=== PATIENT | female | born 1945 | race Caucasian/White ===

== ENCOUNTER → 2017-01-27 | Outpatient (CLI) | payer MEDICARE | LOC: MHCPAIN 10:23 | DX: G89.29 Other chronic pain (principal); M47.817 Spondylosis without myelopathy or radiculopathy, lumbosacral region; M54.16 Radiculopathy, lumbar region; M53.3 Sacrococcygeal disorders, not elsewhere classified; M96.1 Postlaminectomy syndrome, not elsewhere classified | CPT/HCPCS: G0463 ==

== ENCOUNTER 2023-02-13 20:18 | Inpatient (IN) | payer MEDICARE, OTHER ==
[~2023-02-13] VITALS: Ht 165.1 cm; Wt 61.2 kg
[2023-02-13 20:34] LABS: BASO % 0.5 % (0.0-2.0); EOS # 0.1 K/mm3 (0.0-0.7); EOS % 1.6 % (0.0-4.0); GRAN # 4.7 K/mm3 (1.4-6.5); GRAN % 61.2 % (42.2-75.2); HEMATOCRIT 42.1 % (37.0-47.0); HEMOGLOBIN 13.7 g/dl (12.5-16.0); LYMPH # 2.3 K/mm3 (1.2-3.4); LYMPH % 30.6 % (20.0-51.0); MEAN CELL VOLUME 99 fl (80.0-100.0); MEAN CORPUSCULAR HEMOGLOBIN 32 pg (27-31); MEAN CORPUSCULAR HGB CONC 33 g/dl (33.0-37.0); MEAN PLATELET VOLUME 10.3 fl (7.4-10.4); MONO # 0.4 K/mm3 (0.1-0.6); MONO % 5.7 % (1.7-9.3); PLATELET COUNT 202 K/mm3 (130-400); RED BLOOD COUNT 4.25 M/mm3 (4.10-5.30); REDCELL DISTRIBUTION WIDTH-CV 13.3 % (11.5-14.5)
[2023-02-13 20:52] LABS: ALBUMIN 4.4 gm/dL (3.4-4.8); BILIRUBIN,TOTAL 0.4 mg/dL (0.2-1.2); CALCIUM 9.7 mg/dL (8.4-10.2); CREATININE, serum 1.11 mg/dL (0.57-1.11); POTASSIUM 3.2 mmol/L (3.5-4.5); TOTAL PROTEIN 7.7 gm/dL (6.2-8.1)
[2023-02-13] MEDS ORDERED: AMBIEN 5MG TABLE5 MG PO (21:38)
[2023-02-13] MEDS ORDERED: ZOCOR 20MG20 MG PO (21:42)
[2023-02-13] MEDS ORDERED: CYMBALTA 30MG30 MG PO (21:44)
[2023-02-13] MEDS ORDERED: NORCO 325 MG-51 TAB PO (21:48)
[2023-02-13] MEDS ORDERED: ZANAFLEX 4MG TAB4 MG PO (21:50)
[2023-02-13] MEDS ORDERED: NEURONTIN600 MG/TAB PO (21:51)
[2023-02-13] MEDS ORDERED: HCTZ 25MG TAB25 MG PO (21:53)
[2023-02-13] MEDS ORDERED: NORVASC 5MG5 MG/TAB PO (21:55)
[2023-02-13] MEDS ORDERED: ATARAX 25MG25 MG/TAB PO (21:57)
[2023-02-13 23:40] LABS: COLLECTION METHOD CATHETER
[2023-02-14] VITALS (15 sets, daily range): BP systolic 117–150; BP diastolic 50–99; PULSE 64–88; TEMP 97.4–99.4
[2023-02-14 00:05] LABS: PH 6.5 (5.0-8.5); URINE APPEARANCE Clear (CLEAR/HAZY); URINE BLOOD TRACE-INTACT (NEGATIVE); URINE COLOR Yellow (YELLOW); URINE GLUCOSE Negative (NEGATIVE); URINE KETONE Negative (NEGATIVE); URINE NITRATE Negative (NEGATIVE); URINE PROTEIN(semi-quant) Negative (NEGATIVE); URINE UROBILINOGEN 0.2 E.U/dL (0.2-1.0)
[2023-02-14 00:13] LABS: SQUAMOUS EPITHELIAL None Seen /hpf (0-10); URINE BACTERIA Rare /hpf (NONE SEEN); URINE RBC None Seen /hpf (0-2)
--- NOTE | 2023-02-14 00:27 | NUR ---
PT ADMITTED TO ROOM 343 FROM ER. PT IS IN SEVERE PAIN. NEW ORDER RECEIVED FROM [facility] FOR 1MG DILAUDID. GIVEN SLOWLY. O2 SAT FLUCUATING 88- 97% PLACED 02 OXYMASK AT 5L. RT NOTIFIED. PAIN CONTINUES. SEE MAR FOR DILAUDID/TORADOL/ KXYH1DR GIVEN. DAUGHTERS AT BEDSIDE. VERY SUPPORTIVE.
--- NOTE | 2023-02-14 01:43 | NUR ---
PT DOZING NOW. MORE COMFORTABLE. VSS. O2 5L PER OXYMASK. DAUGHTER LEFT FOR HOME. FAMILY WANTS TO BE CALLED SOON ORTHO DECIDES TIME FOR SURGERY. [place]. PT NPO AT MIDNIGHT. CALL LIGHT IN REACH. BED ALARM SET.
--- NOTE | 2023-02-14 03:30 | NUR ---
PT TAKES OFF OXYMASK AND O2 SAT DECREASE TO 69%-70%. RECOVERS TO 97% WITH OXYMASK IN PLACE. SCD PLACED ON LLE.
[2023-02-14 03:42] LABS: PARTIAL THROMBOPLASTIN TIME 27.4 SECONDS (26.0-37.0)
[2023-02-14 03:47] LABS: INR 1.1 (0.8-3.0); PROTHROMBIN TIME 12.4 SECONDS (9.7-12.8)
--- NOTE | 2023-02-14 06:19 | NUR ---
NOTIFIED DAUGHTER - PLANS FOR SURGERY AT 1000 THIS MORNING.
--- NOTE | 2023-02-14 06:25 | NUR ---
GAVE PT DILAUDID. PAIN LEVEL /10. O2 LEVEL 95-97%
--- NOTE | 2023-02-14 08:00 | NUR ---
PATIENT IS VERY DROWSY BUT AROUSES TO VERBAL STIMULI. DIVING JUDGE REPORTED C/O PAIN AND DOSE OF IV DILAUDID BEFORE SHIFT CHANGE. DIVING JUDGE ALSO REPORTED INCREASED O2 NEEDS OVER NIGHT DUE TO NARCOTIC ADMINISTRATION. AT SHIFT CHANGE, PATIENT WAS 100% ON 5L OXYMASK, PATIENT NOW IN UPPER 90'S ON 2-3L AND WILL CONTINUE TO WEAN DOWN PER VITALS. BUCKS TRACTION INPLACE TO RLE. NPO FOR PENDING SURGERY TODAY, NO ORDERS FOR CONSENT AT THIS TIME. IV FLUIDS INFUSING VIA PUMP. TOLBERT TO DILLON. HEAD TO TOE ASSESSMENT COMPLETE. PATIENT RESTING WITH CALL LIGHT IN REACH. BED ALARM ON. NO FAMILY AT BEDSIDE YET.
--- NOTE | 2023-02-14 09:50 | NUR ---
& ORTHO PA AT BEDSIDE VISITING WITH PATIENT & DAUGHTERS
[2023-02-14 10:15] LABS: CREATININE, serum 0.88 mg/dL (0.57-1.11); POTASSIUM 3.6 mmol/L (3.5-4.5)
--- NOTE | 2023-02-14 10:20 | NUR ---
PATIENT'S POTASSIUM RECHECK WAS 3.6, PATIENT CLEARED FOR SURGERY. PACU AT BEDSIDE OBTAINING CONSENT, IV FLUIDS TO GRAVITY, PATIENT GOING DOWN TO OR WITH DAUGHTER AT BEDSIDE.
--- NOTE | 2023-02-14 11:35 | NUR ---
SW presented to complete intake with patient and was informed that patient would be going to surgery. SW will present at a different time to complete intake. SW will continue to follow.
--- NOTE | 2023-02-14 13:00 | NUR ---
PATIENT BACK IN ROOM 343 POST OP. AROUSES TO VERBAL STIMULI BUT IS DROWSY. PACU GAVE IV DILAUDID BEFORE COMING TO THE FLOOR DUE TO INCREASED PAIN AND MOANING DURING REPORT, NO C/O PAIN AT THIS TIME. PATIENT BROUGHT TO FLOOR FROM PACU ON 10L OXYMASK WITH SATS AT 98%, PATIENT WEANED DOWN TO 3L PER MASK WITH SATS AT 98-99%. FAMILY AT BEDSIDE TALKING INTERMITTENTLY WITH PATIENT.
[2023-02-15] VITALS (11 sets, daily range): BP systolic 114–139; BP diastolic 52–64; PULSE 70–92; TEMP 97.4–98.9
--- NOTE | 2023-02-15 09:57 | NUR ---
PT RESTING IN BED WITH PAIN 08/01. PLANS TO PROVIDE PAIN MEDICATION WHEN AVAILABLE. PT ASSISTED WITH ADL'S. PT ASSISTED TO CHAIR BY THERAPY X1 ASSIST AND WALKER. DRESSING TO RIGHT HIP SCOOBY, DRY, AND INTACT. FAMILY AT BEDSIDE. WILL CONTINUE TO MONITOR.
--- NOTE | 2023-02-15 11:00 | NUR ---
SW met with patient, some family was present and daughter (Diya Schaefer [phone]) family was presented and permitted by patient to remain in room during intake process. Patient confirmed that she resides in the home with spouse in [place] and independent with ADL's and currently is not prescribed any DME's but has access to walker in her home. Patient confirmed that her PCP is Dr Luis and pharmacy of choice is [facility] location in [place]. Patient is excepting to discharge back to her home, pending any further medical recommendations at this time.
--- NOTE | 2023-02-15 12:01 | NUR ---
TOLBERT D/C PER ORDERS, NO COMPLAINTS AT THIS TIME
[2023-02-16] VITALS (14 sets, daily range): BP systolic 117–145; BP diastolic 56–67; PULSE 67–87; TEMP 97.8–99
--- NOTE | 2023-02-16 06:17 | NUR ---
PT weaned to RA per RT earlier this shift, replaced after O2 sats <90% on RA, on 2L NC. up to bsc with x2 assist using GB/walker, pain controlled with po pain meds. dsg to right hip cdi, ice pack on as siva. RW INT patent/secure.
[2023-02-16 11:03] LABS: HEMATOCRIT 22.2 % (37.0-47.0); HEMOGLOBIN 7.4 g/dl (12.5-16.0)
--- NOTE | 2023-02-16 16:36 | NUR ---
anode worker met with patient to discuss discharge planning. SW provided the Medicare.gov list of options for SNF in the [facility], which is where the patient lives. SW followed up with patient on her preferences for SNF. Patient would like referrals sent to [facility]. LATIA faxed referrals to [facility]. LATIA was notified [facility] is a smoke free facility. Patient understood and would follow those rules. LATIA discussed inpatient rehab with this patient. Patient would be interested in IPR but would like to speak with her first. LATIA mentioned this to the IPR director. LATIA was notified the IPR director met with patient and she still needed to speak with her about her options. LATIA will follow up. Discharge Plan: SNF or IPR
--- NOTE | 2023-02-16 22:19 | NUR ---
PT A&O X4. VSS ON 1L/NC. X2 ASSIST UP TO BSC, TEARFUL & RATING PAIN 8/10 WITH MOVEMENT, GIVEN PRN SEE APR. PT BACK IN BED & RATING PAIN 6/10 WHEN LAYING DOWN. X4 INCISIONS TO RIGHT HIP WITH GAUZE CDI & ICE PACK IN PLACE. RIGHT WRIST INT PATENT. SCDS & TEDS ON. FALL PRECAUTIONS IN PLACE & CALL LIGHT IN REACH. DENYING FURTHER NEEDS.
[2023-02-17] VITALS (11 sets, daily range): BP systolic 143–153; BP diastolic 60–72; PULSE 64–85; TEMP 97.5–98.3
--- NOTE | 2023-02-17 04:53 | NUR ---
PT HAS SLEPT THROUGHOUT SHIFT WITH NO FURTHER C/O PAIN. EVEN & UNLABORED RESP NOTED. REMAINS ON 1L/NC. SCDS & TEDS ON. ICE PACK TO RIGHT HIP. CALL LIGHT IN REACH.
--- NOTE | 2023-02-17 06:14 | NUR ---
X2 ASSIST UP TO BSC. PT VERY TEARFUL WHEN STANDING UP & STATES PAIN IS 7/10 WHEN SHE HAS TO MOVE, GIVEN PRN SEE MAR. PT BACK IN BED WITH CALL LIGHT IN REACH DENYING FURTHER NEEDS.
[2023-02-17 10:15] LABS: HEMATOCRIT 23.4 % (37.0-47.0); HEMOGLOBIN 7.9 g/dl (12.5-16.0)
[2023-02-17 10:35] LABS: CALCIUM 8.6 mg/dL (8.4-10.2); CREATININE, serum 0.81 mg/dL (0.57-1.11); POTASSIUM 3.6 mmol/L (3.5-4.5)
--- NOTE | 2023-02-17 11:56 | NUR ---
PT RETURNED FROM SWALLOW STUDY.
--- NOTE | 2023-02-17 17:05 | NUR ---
buffing line set up worker met with patient and family regarding options for IPR or SNF. Patient and family agreed IPR would be their preference. SW spoke with the IPR director, Ann, whom expressed they would have availability on Wednesday to accept. LATIA notified Dr. Martins of patient transfer on Wednesday to [facility]. Discharge Plan: IPR
--- NOTE | 2023-02-17 20:30 | NUR ---
PT IN BED, TAKES HS MEDS WITH HOB ELEVATED AND ONE PILL AT A TIME. ASSISTED TO BSC, DOES FAIR. PT REPORTS MUCH PAIN WITH ACTIVITY, WAS GIVEN NORCO 7.5MG PO WITH HS MEDS. HAS INT TO RT HAND, FLUSHES OK. VOIDS AND BACK TO BED. REDRESSED RT UPPER HIP INCISION WITH NEW 4X4 AND TEGADERM, NOTED BRUISING AT SITE. OTHER 2 INCISIONS D/I. PT READY FOR BED. BED ALARM ON.
[2023-02-18] VITALS (11 sets, daily range): BP systolic 130–173; BP diastolic 51–78; PULSE 77–91; TEMP 97.4–98.7
--- NOTE | 2023-02-18 03:30 | NUR ---
PT ASSISTED TO BSC, MUCH DIFFICULTY WITH PAIN WITH TRANSFERS. VOIDS AND BACK TO BED ASSISTED WITH 2 STAFF/GAITBELT/WALKER.
--- NOTE | 2023-02-18 03:41 | NUR ---
MEDICATED WITH NORCO 7.5MG, SCHEDULED ES TYLENOL AND ATARAX 25MG PO NOW FOR RT HIP PAIN AND MILD ANXIETY.
[2023-02-18 06:44] LABS: BASO % 0.5 % (0.0-2.0); EOS # 0.2 K/mm3 (0.0-0.7); EOS % 2.6 % (0.0-4.0); GRAN % 64.2 % (42.2-75.2); LYMPH # 1.5 K/mm3 (1.2-3.4); LYMPH % 23.7 % (20.0-51.0); MEAN CELL VOLUME 96 fl (80.0-100.0); MEAN CORPUSCULAR HGB CONC 33 g/dl (33.0-37.0); MEAN PLATELET VOLUME 11.5 fl (7.4-10.4); MONO # 0.5 K/mm3 (0.1-0.6); MONO % 8.8 % (1.7-9.3); PLATELET COUNT 180 K/mm3 (130-400); RED BLOOD COUNT 2.36 M/mm3 (4.10-5.30)
[2023-02-18 06:48] LABS: HEMATOCRIT 22.6 % (37.0-47.0); HEMOGLOBIN 7.5 g/dl (12.5-16.0); MEAN CORPUSCULAR HEMOGLOBIN 32 pg (27-31)
[2023-02-18 07:00] LABS: CALCIUM 8.7 mg/dL (8.4-10.2); CREATININE, serum 0.77 mg/dL (0.57-1.11)
--- NOTE | 2023-02-18 10:36 | NUR ---
PATIENT ALERT AND ORIENTED X4. VSS. PATIENT HERE FOR RIGHT HIP FRACTURE. INCISIONS X3 CDI WITH GAUZE/TEGADERM. IV TO RIGHT HAND, INT AND FLUSHES WELL. PATIENT UP TO CHAIR THIS AM. PATIENT REPORTS PAIN 8/10, REQUESTS PAIN MEDICATION. NO FURTHER NEEDS AT THIS TIME. CHAIR ALARM ON. CALL LIGHT IN REACH.
--- NOTE | 2023-02-18 17:00 | NUR ---
box storage worker notified patient that she would transfer to the [facility] floor tomorrow afternoon. Patient's family member, Jorge, P# [phone], contacted the delinquency prevention social worker regarding questions about paperwork for discharge to [facility] and information on DPOA-HC. SW expressed she would meet with the patient in the morning and could discuss if she would like to complete a DPOA-HC at that time. No further questions or concerns at this time. Discharge Plan: [facility]
--- NOTE | 2023-02-18 19:30 | NUR ---
Received change of shift report from day shift nurse. Patient up in chair, denies any needs or concerns. Call light in reach.
[2023-02-19] VITALS (7 sets, daily range): BP systolic 151–166; BP diastolic 60–81; PULSE 76–83; TEMP 97.8–98.3
[2023-02-19 06:21] LABS: BASO % 0.3 % (0.0-2.0); EOS # 0.2 K/mm3 (0.0-0.7); EOS % 3.4 % (0.0-4.0); GRAN # 3.8 K/mm3 (1.4-6.5); GRAN % 62.7 % (42.2-75.2); LYMPH # 1.5 K/mm3 (1.2-3.4); LYMPH % 24.5 % (20.0-51.0); MEAN CELL VOLUME 97 fl (80.0-100.0); MEAN CORPUSCULAR HGB CONC 32 g/dl (33.0-37.0); MONO # 0.5 K/mm3 (0.1-0.6); MONO % 8.8 % (1.7-9.3); PLATELET COUNT 237 K/mm3 (130-400); RED BLOOD COUNT 2.45 M/mm3 (4.10-5.30); REDCELL DISTRIBUTION WIDTH-CV 13.2 % (11.5-14.5)
[2023-02-19 06:22] LABS: HEMATOCRIT 23.8 % (37.0-47.0); HEMOGLOBIN 7.7 g/dl (12.5-16.0); MEAN CORPUSCULAR HEMOGLOBIN 31 pg (27-31)
[2023-02-19 06:43] LABS: CALCIUM 9.2 mg/dL (8.4-10.2); CREATININE, serum 0.76 mg/dL (0.57-1.11); POTASSIUM 3.7 mmol/L (3.5-4.5)
--- NOTE | 2023-02-19 06:49 | NUR ---
Change of shift report given to day shift nurseBriana.
--- NOTE | 2023-02-19 09:59 | NUR ---
PATIENT ALERT AND ORIENTED X4. VSS. PATIENT HERE FOR RIGHT HIP FRACTURE. INCISIONS X3 CDI WITH GAUZE/TEGADERM. PATIENT REPORTS PAIN 5/10, REQUESTS PAIN MEDICATION. IV TO RIGHT HAND, INT AND FLUSHES WELL. PATIENT EATING BREAKFAST, NO FURTHER COMPLAINTS. CALL LIGHT IN REACH. BED ALARM ON.
--- NOTE | 2023-02-19 11:05 | NUR ---
PATIENT DOWN FOR BARIUM SWALLOW
--- NOTE | 2023-02-19 11:20 | NUR ---
PATIENT BACK TO FLOOR FROM BARIUM SWALLOW. CEPHALOMETRIC TRACER REPORTS UNABLE TO PERFORM BARIUM SWALLOW DUE TO PATIENT'S INABILITY TO STAND FOR AT LEAST 10 MINUTES. PATIENT BACK TO FLOOR AND IN BED, CALL LIGHT IN REACH. BED ALARM ON.
[2023-02-19] MEDS ORDERED: ASPI325T6 PO (11:46)
[2023-02-19] MEDS ORDERED: FERROUS SU325 MG/TAB PO (11:46)
[2023-02-19] MEDS ORDERED: TYLENOL 500MG500 MG PO (11:47)
[2023-02-19] MEDS ORDERED: CALCIUM 600600 MG PO (11:48)
[2023-02-19] MEDS ORDERED: SENEXON-S 50-81 EACH PO (11:48)
[2023-02-19] MEDS ORDERED: DULCOLAX S10 MG/SUPP RC (11:48)
[2023-02-19] MEDS ORDERED: VITAMIN C500 MG PO (11:51)
[2023-02-19] MEDS ORDERED: MULTI VITAMINS1 TAB PO (11:51)
[2023-02-19] MEDS ORDERED: FOLIC ACID 11 MG/TA1 PO (11:51)
--- NOTE | 2023-02-19 11:52 | NUR ---
PATIENT AND BELONGINGS GATHERED. IV DC'D FROM RIGHT HAND.
--- NOTE | 2023-02-19 14:51 | NUR ---
maintenance worker swimming pool met with patient to review important message from Medicare. Patient expressed she understood but would like to sign later as she was in pain and would like pain medications. SW met with patient's nurse whom expressed patient had received medications earlier can not receive another dose at this time. SW met with patient and she expressed she had forgotten she had received medications. Patient reports she was groggy and would like to take a nap. SW met with patient later to finalize the important message. SW re-reviewed the form. Patient understood and signed the form. SW placed original in chart and provided copy to patient. SW discussed a DPOA-HC with patient but she reports still being a bit groggy. SW expressed at this time she would like to wait until she is feeling better to complete the DPOA-HC. Patient is moving to the IPR until and can complete one next week. Patient was in agreement that she would like to wait at this time. Discharge plan: IPR
== END 2023-02-19 11:53 | DRG 482 ==
LOC: COL.ER 20:18 → SURG 23:05
PROVIDERS: Family Medicine; Internal Medicine; Nurse Practitioner Primary Care; Orthopaedic Surgery; Physician Assistant; ADMIT Internal Medicine
PROC: 0QS606Z Reposition Right Upper Femur with Intramedullary Internal Fixation Device, Open Approach (ICD-10-PCS; principal; 2023-02-14 10:00)
DX: S72.141A Displaced intertrochanteric fracture of right femur, initial encounter for closed fracture (principal); F17.210 Nicotine dependence, cigarettes, uncomplicated; W01.0XXA Fall on same level from slipping, tripping and stumbling without subsequent striking against object, initial encounter; G89.29 Other chronic pain; I10 Essential (primary) hypertension; F41.9 Anxiety disorder, unspecified; D64.9 Anemia, unspecified; K59.00 Constipation, unspecified; E87.6 Hypokalemia; G47.00 Insomnia, unspecified; M54.50 Low back pain, unspecified; Z74.09 Other reduced mobility; R13.10 Dysphagia, unspecified; Z23 Encounter for immunization; Z88.5 Allergy status to narcotic agent; Y93.89 Activity, other specified; Y92.89 Other specified places as the place of occurrence of the external cause; Z98.51 Tubal ligation status; Z79.899 Other long term (current) drug therapy
CPT/HCPCS: A9284; C1713; J0665; J0690; J1100; J1170; J1885; J2270; J2405; J2704; J3010; J3475; J7120

== ENCOUNTER 2023-02-19 12:02 | Inpatient (IN) | payer MEDICARE, OTHER ==
[~2023-02-19] VITALS: Ht 165.1 cm; Wt 58.5 kg
[~2023-02-19 12:02] MED LIST: AMBIEN 5MG TABLE5 MG PO; ASPI325T6 PO; ATARAX 25MG25 MG/TAB PO; CALCIUM 600600 MG PO; CYMBALTA 30MG30 MG PO; DULCOLAX S10 MG/SUPP RC; FERROUS SU325 MG/TAB PO; FOLIC ACID 11 MG/TA1 PO; HCTZ 25MG TAB25 MG PO; MULTI VITAMINS1 TAB PO; NEURONTIN600 MG/TAB PO; NORCO 325 MG-51 TAB PO; NORVASC 5MG5 MG/TAB PO; SENEXON-S 50-81 EACH PO; TYLENOL 500MG500 MG PO; VITAMIN C500 MG PO; ZANAFLEX 4MG TAB4 MG PO; ZOCOR 20MG20 MG PO
[2023-02-19] MEDS ORDERED: Acetaminophen 325 MG TAB PO PRN (12:30)
[2023-02-19] MEDS ORDERED: Docusate Sodium 100 MG CAP PO PRN (12:30)
[2023-02-19] MEDS ORDERED: Polyethylene Glycol 3350 17 GM PDS PO PRN (12:30)
[2023-02-19] MEDS ORDERED: Naloxone 0.4 MG/ML VIAL IV PRN (12:30)
[2023-02-19] MEDS ORDERED: Sennosides/Docusate 8.6-50 MG TAB PO PRN (12:30)
[2023-02-19] MEDS ORDERED: HYDROcodone/Acetaminophen 7.5-325 MG TAB PO PRN (14:15)
[2023-02-19] MEDS ORDERED: Acetaminophen 500 MG TAB PO SCH (14:15)
--- NOTE | 2023-02-19 14:55 | NUR ---
Has lack of transportation kept you from medical appts, meetings, work, or from getting things needed for daily living? NO How often do you feel lonely or isolated from those around you? SOMETIMES Over the past 5 days, how much of the time has pain made it hard for you to sleep? OCCASIONALLY Over the past 5 days, how often have you limited your participation in therapy due to pain? OCCASIONALLY Over the past 5 days, how often have you limited your day-to-day activities because of pain? OCCASIONALLY Have you had 2 or more falls in the past year or any fall with an injury? YES Did you have major surgery during the 100 days prior to admission? YES
[2023-02-19 18:08] VITALS: BP 158/63; PULSE 85; TEMP 97.8
[2023-02-19] MEDS ORDERED: Gabapentin 300 MG CAP PO SCH (21:00)
[2023-02-19] MEDS ORDERED: Famotidine 20 MG TAB PO SCH (21:00)
[2023-02-19] MEDS ORDERED: Sennosides/Docusate 8.6-50 MG TAB PO SCH (21:00)
[2023-02-19] MEDS ORDERED: hydrOXYzine HCl 25 MG TAB PO PRN (21:00)
--- NOTE | 2023-02-19 21:20 | NUR ---
PT A&O X4 LAYING IN BED. STATES PAIN IS 7/10 IN RIGHT HIP & WORSENS WITH MOVEMENT, GIVEN PRN SEE MAR. X3 INCISIONS TO RIGHT HIP WITH GAUZE & TEGADERM CD&I. ICE TO RIGHT HIP & TEDS ON BLE. FALL PRECAUTIONS IN PLACE & CALL LIGHT IN REACH. DENYING FURTHER NEEDS AT THIS TIME.
--- NOTE | 2023-02-20 05:50 | NUR ---
PT UP TO RESTROOM SEVERAL TIMES THROUGHOUT THE NIGHT WITH X1 ASSIST TO W/C. CURRENTLY BACK IN BED. RATING PAIN IN RIGHT HIP 5/10, GIVEN TYLENOL & ICE PACK. CALL LIGHT IN REACH & DENYING FURTHER NEEDS.
[2023-02-20 06:06] VITALS: BP 166/78; PULSE 73; TEMP 97.6
[2023-02-20] MEDS ORDERED: amLODIPine 5 MG TAB PO SCH (09:00)
[2023-02-20] MEDS ORDERED: Folic Acid 1 MG TAB PO SCH (09:00)
[2023-02-20] MEDS ORDERED: DULoxetine 30 MG CAP PO SCH (09:00)
[2023-02-20] MEDS ORDERED: Ascorbic Acid 500 MG TAB PO SCH (09:00)
[2023-02-20] MEDS ORDERED: Ferrous Sulfate 325 MG TAB PO SCH (09:00)
[2023-02-20] MEDS ORDERED: Calcium Carbonate 500 MG TAB PO SCH (09:00)
--- NOTE | 2023-02-20 11:43 | NUR ---
Data: Pegger visit attempted. Assessment: Patient was asleep. Plan of Care: Chaplains will remain available as needed/desired while Patient is admitted to this hospital.
[2023-02-20] MEDS ORDERED: Multivitamin TAB PO SCH (12:00)
[2023-02-20 14:39] LABS: COLLECTION METHOD CATHETER
[2023-02-20 14:55] LABS: PH 7.5 (5.0-8.5); SQUAMOUS EPITHELIAL 0-2 /hpf (0-10); URINE APPEARANCE Clear (CLEAR/HAZY); URINE BLOOD Negative (NEGATIVE); URINE COLOR Yellow (YELLOW); URINE GLUCOSE Negative (NEGATIVE); URINE KETONE Negative (NEGATIVE); URINE NITRATE Negative (NEGATIVE); URINE PROTEIN(semi-quant) Negative (NEGATIVE)
[2023-02-20 17:09] VITALS: BP 162/78; PULSE 78; TEMP 97.6
--- NOTE | 2023-02-20 17:36 | NUR ---
RECIEVED REPORT FROM NIGHT RN
--- NOTE | 2023-02-20 18:07 | NUR ---
PT ALERT AND ORIENTED X3. C/O SEVERE PAIN TO WHERE SHE BEGUN TO CRY AND WINCE. I GAVE HER NORCO AND IT SEEMED TO HELP. HER AND FAMILY CAME TO SEE HER TODAY WHICH SEEMED TO LIFT HER SPIRITS. SHIFT ASSESSMENT COMPLETE,SEE DOCUMENTATION. VSS, MEDICATED PER EMAR. INCSION SITES X3 CDI. DENIES NEED FOR ANYTHING FURTHER. CALL LIGHT WITHIN REACH, BED ALARM SET.
[2023-02-20 18:32] VITALS: BP 160/88; PULSE 94
--- NOTE | 2023-02-20 19:13 | NUR ---
Patient hurting so bad, PS of 9-10, medicated with [place] and applied ice pack to right hip, HS given without any difficulty, dressing to right hip CDI, denies further needs, call light and personal items within reach, will continue to monitor.
--- NOTE | 2023-02-20 22:35 | NUR ---
Called Tatyana,the SKIDWAY WORKER and informed her that patient wanted to take ambien, received an order for melatonin 9mg HS PRN.
[2023-02-20] MEDS ORDERED: Melatonin 3 MG TAB PO PRN (22:45)
--- NOTE | 2023-02-21 04:35 | NUR ---
Patient up to the bathroom at this time, reports she did get some sleep, denies further needs, will monitor.
[2023-02-21 05:38] VITALS: BP 168/72; PULSE 74; TEMP 97.7
[2023-02-21 06:34] VITALS: BP 170/90
[2023-02-21] MEDS ORDERED: HYDROcodone/Acetaminophen 7.5-325 MG TAB PO PRN ×2 (07:45→09:09)
--- NOTE | 2023-02-21 08:21 | NUR ---
PT ALERT AND ORIENNTED X4. C/O OF SEVERE PAIN THIS MORNING UPON RECIEVING BEDSIDE REPORT. NIGHT RN CONTACTED HOSPITALIST FOR UNRELIEVED PAIN AND ELVATED BP. NO ANSWER, MESSAGE LEFT. I ALSO CONTACTED HOSPITALIST PA FOR SAME ISSUES NOTED ABOVE. REPEAT XRAY OF R HIP ORDERED AND SCHEDULED PAIN MEDS GIVEN WELL DAILY AM MEDS. SHIFT ASSESSMENT COMPLETE. WILL REASSESS PAIN IN AN HOUR WELL BP, PT SITTING UP IN BED EATING BREAKFAST. CALL LIGHT WITHIN REACH BED ALARM SET.
--- NOTE | 2023-02-21 10:42 | NUR ---
Store Receiver met with patient to complete initial intake as she is new to the rehab unit. Patient lives in [place], [place] with her , Reginald and stated she has a lot of family support. Patient stated she and Reginald have been 27 years and have 7 children between them. Patient reported she also has [address] Luis for primary care and normally drives herself to appointments. Patient obtains medications from [facility] with no difficulties. Patient has a walking cane she uses to walk along the varela for extra support, but does not normally need any DME. Patient stated she is normally very independent.
[2023-02-21] MEDS ORDERED: hydroCHLOROthiazide 12.5 MG CAP PO SCH (11:55)
[2023-02-21] MEDS ORDERED: Acetaminophen 325 MG TAB PO SCH (14:15)
[2023-02-21 17:19] VITALS: BP 159/75; PULSE 77; TEMP 97.5
--- NOTE | 2023-02-21 22:25 | NUR ---
PT LAYING IN BED, ALERT AND ORIENTEDX4. RATES PAIN 8/10 IN THE RIGHT HIP. GAVE NORCO FOR PAIN. PT HAS NOT HAD MUCH RELIEF FROM NORCO. GOT PT UP TO BATHROOM USING WALKER AND GAIT BELT. ASSESSED. CALL LIGHT WITHIN REACH.
[2023-02-22 05:56] VITALS: BP 151/67; PULSE 83; TEMP 98.3
--- NOTE | 2023-02-22 10:27 | NUR ---
PT ALERT AND ORIENTED X4. SAYS SHE DIDNT SLEEP WELL OVERNIGHT R/T UNRELIEVED PAIN. BROUGHT IN [place] WITH SCHEDULED MORNING MEDS, PAIN RATED 5/10. SHIFT ASSESSMENT COMPLETE,SEE DOCUMENTATION. AMBULATES WITH ONE PERSON FWW AND GAIT BELT. APPETITIE OK WHEN PAIN RELIEVED. NO FURTHER CONCERNS, CALL LIGHT WITHIN REACH, BED ALARM SET.
[2023-02-22 16:58] VITALS: BP 170/72; PULSE 69; TEMP 98
--- NOTE | 2023-02-22 19:06 | NUR ---
report received from duane schmitt. pt just got into bed after family left. pt states her pain is ok for now. ice to right hip. bed alarm on. call light in reach. all needs met at this time.
--- NOTE | 2023-02-22 20:44 | NUR ---
shift assessment complete, see documentation. pt reporting 8/10 rle pain. prn norco administered per orders for pain. pt tolerated hs meds well. pt resting in bed and reading a book. bed alarm on. call light in reach. all needs met at this time.
--- NOTE | 2023-02-23 02:47 | NUR ---
pt ambulating to bathroom without difficulty. pt denies pain at this time but is concerned about how often she is urinating. informed her we could discuss with the doctor. bed alarm on. call light in reach. all needs met at this time.
[2023-02-23 05:45] VITALS: BP 159/73; PULSE 81; TEMP 98
[2023-02-23 07:24] LABS: BASO % 0.5 % (0.0-2.0); EOS # 0.3 K/mm3 (0.0-0.7); EOS % 4.5 % (0.0-4.0); GRAN # 3.4 K/mm3 (1.4-6.5); GRAN % 59.1 % (42.2-75.2); LYMPH # 1.5 K/mm3 (1.2-3.4); LYMPH % 26.2 % (20.0-51.0); MEAN CELL VOLUME 99 fl (80.0-100.0); MEAN CORPUSCULAR HGB CONC 33 g/dl (33.0-37.0); MEAN PLATELET VOLUME 9.7 fl (7.4-10.4); MONO # 0.5 K/mm3 (0.1-0.6); PLATELET COUNT 426 K/mm3 (130-400); RED BLOOD COUNT 2.74 M/mm3 (4.10-5.30); REDCELL DISTRIBUTION WIDTH-CV 13.6 % (11.5-14.5)
[2023-02-23 07:27] LABS: HEMOGLOBIN 8.8 g/dl (12.5-16.0); MEAN CORPUSCULAR HEMOGLOBIN 32 pg (27-31)
[2023-02-23 07:45] LABS: CALCIUM 9.7 mg/dL (8.4-10.2); CREATININE, serum 0.83 mg/dL (0.57-1.11); MAGNESIUM 1.9 mg/dL (1.6-2.6); POTASSIUM 3.6 mmol/L (3.5-4.5)
--- NOTE | 2023-02-23 08:15 | NUR ---
PT LAYING IN BED, ALERT AND ORIENTED. PT RATES PAIN 9/10 IN THE RIGHT HIP AND SAYS LEG MUSCLES HURT. PT IS CRYING. WEAKNESS IN THE RIGHT LEG. DRESSINGS ON RIGHT HIP ARE CLEAN, DRY, INTACT. GAVE PT NORCO FOR PAIN. ASSESSED AND GAVE MORNIGN MEDS. CALL LIGHT WITHIN REACH.
[2023-02-23] MEDS ORDERED: HYDROcodone/Acetaminophen 10-325 MG TAB PO PRN (08:30)
[2023-02-23] MEDS ORDERED: Methocarbamol 750 MG TAB PO SCH (09:00)
--- NOTE | 2023-02-23 16:12 | NUR ---
size worker met with pt and scheduled a family meeting 02/24/23 at 10:30am. Pt was agreeable to this. She will discuss with her family members and she has many whom want to come or be called. SW spoke with her daughter, Diya on her personal phone and explained it further.
[2023-02-23] MEDS ORDERED: Polyethylene Glycol 3350 17 GM PDS PO SCH (17:00)
[2023-02-23 18:17] VITALS: BP 154/72; PULSE 73; TEMP 97.8
--- NOTE | 2023-02-23 19:38 | NUR ---
Received change of shift report from day shift nurse. Patient resting in bed, exit alarm international flight attendant light in reach.
--- NOTE | 2023-02-23 21:51 | NUR ---
Patient requesting Ambien, sleeping pill. Reports she has been taking Ambien for several years "I just can't sleep". Called oncall hosp provider regarding patient's request for Ambien, telephone order given for Zolpidem, see [facility] for D.O. for med.
[2023-02-23] MEDS ORDERED: Zolpidem 5 MG TAB PO PRN (22:00)
[2023-02-24 05:05] VITALS: BP 150/78; PULSE 80; TEMP 98
--- NOTE | 2023-02-24 07:06 | NUR ---
Change of shift report given to day shift nurseBatsheva.
--- NOTE | 2023-02-24 07:13 | NUR ---
Shift report received from night RN. No events reported overnight. Pt sleeping supine in bed w/ even & unlabored resps. Call light in reach. Bed alarm on.
--- NOTE | 2023-02-24 07:54 | NUR ---
Pt assisted w/ uppper body dressing by AUTOMOBILE RELOCATION ENGINEER. Pt reporting pain level of 8/10 to left side head/face & body. [place] given per PRN order. Pt denies chest pain, visual changes, shortness of breath, nausea. Pt sitting up in bed to eat breakfast independently. Other needs denied. Call light in her reach. Bed alarm on.
--- NOTE | 2023-02-24 08:29 | NUR ---
Pt ambulating off unit w/ PT.
--- NOTE | 2023-02-24 09:33 | NUR ---
Pt reporting constipation & requesting Miralax. Pt thinks she has been unable to have a BM x 1 wk. Miralax scheduled for 1700. Okay to give dose early per Dr. Escobedo. Will continue to monitor.
--- NOTE | 2023-02-24 12:27 | NUR ---
Pt sitting up in recliner eating lunch independently. Pt reporting R hip pain at 10. [place] given per PRN order. Other needs denied. Call light in reach. Chair alarm on.
--- NOTE | 2023-02-24 13:57 | NUR ---
Pt ambulating off unit w/ OT.
--- NOTE | 2023-02-24 15:26 | NUR ---
Admission QIM scores were reviewed by the team. Code of 88 chosen for oral hygiene was determined by team discussion to be the most usual performance before interventions for this patient during the assessment period. Code of 3 chosen for toileting hygiene was determined by team discussion to be the most usual performance for this patient during the discharge assessment period. Code of 3 chosen for toilet transfers was determined by team discussion to be the most usual performance for this patient during the discharge assessment period.--Ann Sunshine, PD
--- NOTE | 2023-02-24 16:27 | NUR ---
Pt resting supine in bed watching tv. She reports RLE pain 08/31. Ice pack on. [place] given per PRN order. Other needs denied. Call light in reach. Bed alarm on.
--- NOTE | 2023-02-24 16:38 | NUR ---
galley worker attend a team meeting regarding patient. It was determined she can discharge 03/03/23 with Home Health services. She has a FWW at home. SW attended the family meeting with patient and relayed information about discharge and services. She was excited for this and had supportive family members. LATIA provided the Medicare.gov list to review and will follow up. LATIA confirmed pt has a walker. Daughter, Jorge reports she is able to obtain other equpiment as well through a connection. Discharge Plan: Home 03/03 with HH tbd?
--- NOTE | 2023-02-24 17:40 | NUR ---
Pt up to ambulate to the bathroom. She reports increased pain w/ weight bearing. 1/2 tab [place] given per PRN order. Dulcolax suppository given at pt's request.
[2023-02-24 17:53] VITALS: BP 174/75; PULSE 93; TEMP 97.7
--- NOTE | 2023-02-24 19:22 | NUR ---
Received change of shift report from day shift nurse.
--- NOTE | 2023-02-25 00:13 | NUR ---
Patient resting in bed with eyes closed, breathing nonlabored and even. Did not wake during nursing rounds. Exit alarm on, call light in reach.
[2023-02-25 05:17] VITALS: BP 167/78; PULSE 79; TEMP 97.8
--- NOTE | 2023-02-25 07:12 | NUR ---
Change of shift report given to day shift nursePadma.
--- NOTE | 2023-02-25 09:27 | NUR ---
PT LAYING IN BED, ALERT AND ORIENTEDX4. RATES PAIN 8/10 IN THE RIGHT HIP. GOT PT UP TO BATHROOM AND DRESSED. PT AMBULATED WELL WITH WALKER. PT INSISION SITES ARE CLEAN, DRY, INTACT. NO DRESSING ON TOP SITE. BRUISING AROUND HIP SITES. ASSESSED. GAVE MORNING MEDS AND PAIN PILL. CALL LIGHT WITHIN REACH.
--- NOTE | 2023-02-25 14:25 | NUR ---
typing office worker provided pt with team conference notes and briefly went over them. Pt verbalized understanding. SW previously provided Medicare.gov list and asked if pt reviewed it. Pt reports she has used HH in the past and would like to use them again. Pt could not recall who it was and will follow up with her daughter's to see if they recall the name. Discharge Plan: Home 03/03 with HH tbd?
[2023-02-25 18:11] VITALS: BP 152/73; PULSE 77; TEMP 97.7
[2023-02-25 18:30] VITALS: BP_SYST 152
--- NOTE | 2023-02-25 20:45 | NUR ---
PT RESTING IN BED. A&O. PAIN NOW LEVEL 2/10. ASSISTED PT TO BR WITH WALKER. PT ABLE TO SIT TO SIDE OF BED PER SELF. CGA WITH WALKER. PT ABLE TO MANAGE TOILETING TASKS. BACK TO BED. PT ABLE TO LIFT LEGS INTO BED PER SELF. PILLOW UNDER RLE. CALL LIGHT IN REACH. BED ALARM SET.
[2023-02-26 05:49] VITALS: BP 186/68; BP_SYST 168; PULSE 79; TEMP 97.9
[2023-02-26 07:03] VITALS: BP_SYST 186
[2023-02-26 07:34] VITALS: BP 159/61
--- NOTE | 2023-02-26 07:56 | NUR ---
PT ALERT AND ORIENTED X4. PAIN RATED 2/10 THIS MORNING. BP ELEVATED OVERNIGHT 186/68. UPON RECHECK WAS FOUND TO BE 159/61, MEDICATED PER EMAR. ASSESSMENT COMPLETE. INCISION SITES X3 ON LATERAL RIGH THIP CLEAN,DRY, AND INTACT. NO SWELLING OR REDNESS NOTED. WILL CONTINUE TO MONITOR PAIN. EVEN UNLABORED RESPR. DENIES NEED FOR ANYTHING FURTHER. CALL LIGHT WITHIN REACH, BED ALARM SET.
[2023-02-26 17:50] VITALS: BP 153/77; PULSE 81; TEMP 98.1
[2023-02-27 05:52] VITALS: BP 131/66; PULSE 79; TEMP 97.9
--- NOTE | 2023-02-27 05:52 | NUR ---
PT GIVEN NORCO FOR LEVEL6/10 PAIN. RT HIP. VVS. ASSISTED TO BR W/WALKER. VOIDED. BACK TO BED. CALL LIGHT IN REACH.
[2023-02-27 06:58] VITALS: BP_SYST 131
--- NOTE | 2023-02-27 06:59 | NUR ---
Shift report received from night RN. No events reported overnight. Pt awake & sitting up in bed watching tv. R hip dressings x 3 are CDI. Pain/discomfort denied. Call light in reach. Bed alarm on.
--- NOTE | 2023-02-27 08:43 | NUR ---
Pt resting supine in bed w/ HOB elevated to approx 30 degrees. Pt ate approx 30% of breakfast independently. She reports not feeling very hungry this morning. Pain/discomfort denied. Other needs denied. Call light in reach. Bed alarm on.
--- NOTE | 2023-02-27 09:42 | NUR ---
Pt supervised as she stood from bed to ambulate to the bathroom w/ FWW. Pt to sink after toileting for hygiene. Assistance provided for upper/lower body dressing. R hip dressings CDI. [place] dressing peeling off - gauze & tegaderm reapplied. Pt ambulated w/ RN off unit for Group Therapy.
--- NOTE | 2023-02-27 11:16 | NUR ---
Pt sitting up in recliner w/ BLE elevated on footrest after Group Therapy. Pt reporting R hip pain level of 7. [place] given at pt's request per PRN order. Other needs denied. Call light in reach. Chair alarm on.
--- NOTE | 2023-02-27 12:42 | NUR ---
Pt up to toilet. Unable to have a BM x 3 days. Pt would like to try another suppository this evening after her son & grandkids visit. Pt sitting up in recliner w/ BLE elevated on footrest for lunch. Call light in her reach. Chair alarm is on.
--- NOTE | 2023-02-27 15:49 | NUR ---
Pt sleeping supine in bed. Aroused easily from sleep. Pain denied. Other needs denied. Call light in reach. Fall precautions in place.
[2023-02-27 16:34] VITALS: BP 148/70; PULSE 74; TEMP 98.1
--- NOTE | 2023-02-27 17:49 | NUR ---
Pt up to ambulate to the bathroom w/ FWW. Pt reporting R hip pain level 7. [place] given per PRN order. Pt back in bed after toileting w/ RLE elevated on pillow. Ice pack declined. Other needs denied. Call light in reach. Fall precautions in place.
[2023-02-27 18:30] VITALS: BP_SYST 148
--- NOTE | 2023-02-27 20:00 | NUR ---
UPON SHIFT ASSESSMENT, PAT WAS UP IN BED ON THE PHONE WITH GRANDCHILDREN. RT HIP SURGICAL SITE DRESSING -CDI. SLIGHT EDEMA NOTED FROM HIP TO KNEE-NON PITTING. DISTAL PULSES PALPABLE. CURRENTLY, PAT DENIES ANY PAIN OR NEEDS AT THIS TIME. VS ARE WNL. CALL LIGHT WITHIN REACH, BED ALARM ON
--- NOTE | 2023-02-27 23:10 | NUR ---
PATIENT UP TO BATHROOM, STILL NO BOWEL MOVEMENT. RT HIP SURGICAL DRESSINGS CDI-HOWEVER, TEGADERM ROLLING UP. NEW, LARGER TEGADERM PLACED AGAIN (DAYSHIFT REPLACED WELL).
[2023-02-28 05:05] VITALS: BP 156/76; PULSE 80; TEMP 98.7
--- NOTE | 2023-02-28 05:53 | NUR ---
PATIENT SLEPT THROUGHOUT THE NIGHT. CURRENT VS ARE WNL. RT HIP AND KNEE STILL EXHIBIT NON PITTING EDEMA. PATIENT C/O OF NO PAIN OR NEEDS AT THIS TIME.
[2023-02-28 07:02] VITALS: BP_SYST 156
--- NOTE | 2023-02-28 07:02 | NUR ---
Shift report received from night RN. No events reported overnight. Pt sleeping supine in bed w/ even & unlabored resps. Call light in reach. Fall precautions in place.
--- NOTE | 2023-02-28 08:59 | NUR ---
Pt up to ambulate to the bathroom using her FWW. R hip dressings x 3 are CDI. Pt denies the need for pain medication at this time. Denies other needs. Pt sitting up in bed eating breakfast after toileting. Call light in reach. Fall precautions in place.
--- NOTE | 2023-02-28 11:29 | NUR ---
Suppository given at pt's request for lack of BM x 3-4 days. Abd remains soft w/ active BS in all 4 quads. Pt denies abd. pain or nausea.
[2023-02-28 17:03] VITALS: BP 149/56; PULSE 88; TEMP 98.4
--- NOTE | 2023-02-28 17:19 | NUR ---
Pt sitting up in recliner eating dinner. Pt reporting R hip pain at level 5 & requesting pain medication. [place] given per PRN order. Other needs denied. Call light in reach. Chair alarm on.
[2023-02-28 19:00] VITALS: BP_SYST 149
--- NOTE | 2023-02-28 21:00 | NUR ---
PT SITTING IN RECLINER WATCHING TV. NO NEEDED AT THIS TIME. CALL LIGHT IN REACH. CHAIR ALARM SET.
[2023-03-01 05:14] VITALS: BP 156/79; PULSE 93; TEMP 97.6
[2023-03-01 07:00] VITALS: BP_SYST 156
--- NOTE | 2023-03-01 07:00 | NUR ---
PT RESTING IN BED WATCHING TV. PT IS ON RA. PT IS AXOX3. PT HAVING PAIN TO HIP. PAIN MEDICATION GIVEN RECENTLY BY NIGHT RN. PT HAS CALL LIGHT AND INSTRUCTED TO CALL WITH ALL NEEDS.
--- NOTE | 2023-03-01 14:01 | NUR ---
LATIA followed up with pt on HH option. She reports she forgot to ask her daughter if they recall the name of a previous agency. Pt advised SW can call her dtr, Diya to discuss. Pt says her daughter would know what she would want. SW called Diya and inquired if she was aware of the HH used. She could not recall. SW provided the Medicare.gov site and steps to review HH in her area. Diya said she will review and get back to LATIA. Discharge Plan: Home 03/03 with HH tbd
[2023-03-01 18:31] VITALS: BP 186/76; PULSE 84; TEMP 97
[2023-03-01 19:00] VITALS: BP_SYST 186
--- NOTE | 2023-03-01 20:28 | NUR ---
Received change of shift report from day shift nurse. Patient resting in bed during report with exit alarm on, call light in reach.
[2023-03-01 22:06] VITALS: BP 172/66
--- NOTE | 2023-03-01 23:04 | NUR ---
Request and given sleeping pills at , see MAR. Exit alarm on while resting in bed, call light in reach.
[2023-03-02 04:46] VITALS: BP 178/80; PULSE 89; TEMP 98
[2023-03-02 06:00] VITALS: BP 146/77
[2023-03-02 07:00] VITALS: BP_SYST 146
--- NOTE | 2023-03-02 07:59 | NUR ---
Change of shift report given to day shift nurseHolley.
--- NOTE | 2023-03-02 08:46 | NUR ---
PT ALERT AND ORIENTED, VSS. PAIN RATED 5/10 IN LOWER BACK. ATE BREAKFAST INDEPENDANTLY AND IS GETTING READY TO WORK WITH OT. IS ANTICIPATING GOING HOME TOMORROW. SHIFT ASSESSMENT COMPLETE, MEDICATED PER EMAR. DENIES FURTHER NEEDS AT THIS TIME. CALL LIGHT WITHIN REACH.
[2023-03-02 15:11] LABS: BASO % 0.5 % (0.0-2.0); EOS # 0.2 K/mm3 (0.0-0.7); EOS % 1.8 % (0.0-4.0); GRAN % 70.4 % (42.2-75.2); LYMPH # 1.9 K/mm3 (1.2-3.4); LYMPH % 22.2 % (20.0-51.0); MEAN CELL VOLUME 99 fl (80.0-100.0); MEAN CORPUSCULAR HGB CONC 33 g/dl (33.0-37.0); MEAN PLATELET VOLUME 9.9 fl (7.4-10.4); MONO # 0.4 K/mm3 (0.1-0.6); MONO % 4.6 % (1.7-9.3); PLATELET COUNT 407 K/mm3 (130-400); RED BLOOD COUNT 2.95 M/mm3 (4.10-5.30); REDCELL DISTRIBUTION WIDTH-CV 13.7 % (11.5-14.5)
[2023-03-02 15:13] LABS: HEMATOCRIT 29.3 % (37.0-47.0); HEMOGLOBIN 9.6 g/dl (12.5-16.0); MEAN CORPUSCULAR HEMOGLOBIN 33 pg (27-31)
[2023-03-02 15:27] LABS: CALCIUM 9.6 mg/dL (8.4-10.2); CREATININE, serum 0.85 mg/dL (0.57-1.11); POTASSIUM 3.5 mmol/L (3.5-4.5)
[2023-03-02 15:58] LABS: COLLECTION METHOD CLEAN CATCH
[2023-03-02 16:13] LABS: SQUAMOUS EPITHELIAL 0-2 /hpf (0-10); URINE APPEARANCE Clear (CLEAR/HAZY); URINE BACTERIA None Seen /hpf (NONE SEEN); URINE BLOOD Negative (NEGATIVE); URINE COLOR Yellow (YELLOW); URINE GLUCOSE Negative (NEGATIVE); URINE KETONE Negative (NEGATIVE); URINE NITRATE Negative (NEGATIVE); URINE PROTEIN(semi-quant) Negative (NEGATIVE); URINE RBC 0-2 /hpf (0-2); URINE UROBILINOGEN 0.2 E.U/dL (0.2-1.0)
--- NOTE | 2023-03-02 17:05 | NUR ---
Will lack of transportation kept you from medical appts, meetings, work, or from getting things needed for daily living? no How often do you feel lonely or isolated from those around you? rarely Over the past 5 days, how much of the time has pain made it hard for you to sleep? occasionally Over the past 5 days, how often have you limited your participation in therapy due to pain? rarely/not at all Over the past 5 days, how often have you limited your day-to-day activities because of pain? rarely/not at all
[2023-03-02 18:02] VITALS: BP 147/73; PULSE 75; TEMP 97.8
[2023-03-02 19:08] VITALS: BP_SYST 147
--- NOTE | 2023-03-02 19:08 | NUR ---
RECEIVED CHANGE OF SHIFT REPORT FROM DAY SHIFT NURSE. EXIT ALARMS ON WHEN UP IN CHAIR OR IN BED WITH CALL LIGHT IN REACH.
--- NOTE | 2023-03-03 00:33 | NUR ---
PATIENT ATTEMPTED TO GET UP OUT OF BED PER SELF, DID NOT USE CALL LIGHT, SET OFF BED EXIT ALARM, PATIENT MUMBLING "I DIDN'T THINK I DRANK THAT MUCH". OBSERVED PATIENT GROANING WITH MOVEMENT AND WALKING REPORTING PAIN WITH MOVEMENT. OBSERVED R HIP DRESSING PARTIALLY OFF HIP INCISION AREA, DRESSING REPLACED WITH NEW GAUZE AND TEGADERM, AFTER PAIN MED GIVEN TO PATIENT, SEE MAR FOR MED GIVEN. NO OTHER NEEDS REPORTED AFTER PATIENT BACK IN BED, EXIT ALARM ON AND CONFIRMED THAT CALL LIGHT WAS IN REACH OF PATIENT.
[2023-03-03 05:23] VITALS: BP 151/70; PULSE 85; TEMP 97.7
--- NOTE | 2023-03-03 07:23 | NUR ---
CHANGE OF SHIFT REPORT GIVEN TO DAY SHIFT NURSEROSANNE. PATIENT RESTING IN BED DURING REPORT WITH EXIT ALARM ON AND CALL LIGHT IN REACH. PATIENT ANTICIPATE DISCHARGE FROM UNIT LATER TODAY.
[2023-03-03 07:26] VITALS: BP_SYST 151
--- NOTE | 2023-03-03 08:00 | NUR ---
PT ALERT AND ORIENTED, VSS. SHIFT ASSESMENT COMPLETE, PAIN RATED 5/10. NOT DUE AT THIS TIME. DAUGHTER WILL BE HERE AROUND 11 TO PICK HER UP . PT USES FWW AND GAIT BELT TO AMBULATE. INCISION SITES TO RIGHT HIP CDI, COVERED BY TEGADERM AND 4X4. DNEIES NEED FOR ANYHTING FURTHER AT THIS TIME. CALL LIGHT WITHIN REACH BED ALARM SET.
[2023-03-03] MEDS ORDERED: ROBAXIN 75750 MG/TAB PO (08:04)
[2023-03-03] MEDS ORDERED: FERROUS SU325 MG/TAB PO (08:04)
[2023-03-03] MEDS ORDERED: NORVASC 10MG10 MG PO (08:06)
[2023-03-03] MEDS ORDERED: ASPI325T6 PO (08:06)
[2023-03-03] MEDS ORDERED: TYLENOL 500MG500 MG PO (08:08)
[2023-03-03] MEDS ORDERED: CALCIUM 600600 MG PO (08:08)
[2023-03-03] MEDS ORDERED: SENEXON-S 50-81 EACH PO (08:09)
[2023-03-03] MEDS ORDERED: HCTZ12.5TAB PO (08:09)
[2023-03-03] MEDS ORDERED: MULTI VITAMINS1 TAB PO (08:09)
[2023-03-03] MEDS ORDERED: FOLIC ACID 11 MG/TA1 PO (08:09)
[2023-03-03] MEDS ORDERED: PEPCID 20MG TAB20 MG PO (08:09)
[2023-03-03] MEDS ORDERED: VITAMIN C500 MG PO (08:09)
[2023-03-03] MEDS ORDERED: amLODIPine 10 MG TAB PO SCH (09:00)
--- NOTE | 2023-03-03 11:32 | NUR ---
church worker attended team meeting regarding pt. She is determined to discharge today with [facility]. SW informed the team of the referral sent out and waiting to hear back. Pt has no equipment needs. SW faxed HH referral to [facility]. SW has not heard back on confirmation. SW faxed discharge orders, too. Pt and SW went over IM from Medicare. Pt signed and provided copy. Original in chart. SW called Diya aldana to obtain which HH agency they wanted. She chose [facility] and they believe to have used them in the past. Discharge Plan: Home today with [facility]
--- NOTE | 2023-03-03 11:46 | NUR ---
ALL DISCHARGE INSTRUCTIONS EXPLAINED AND QUESTIONS ANSWERED. PT WALKED OFF UNIT WITH STAFF TO PRIVATE VEHICLE.
--- NOTE | 2023-03-04 13:44 | NUR ---
Discharge QIM scores were reviewed by the team. Code of 6 chosen for eating was determined by team discussion to be the most usual performance for this patient during the discharge assessment period. Code of 6 chosen for oral hygiene was determined by team discussion to be the most usual performance for this patient during the discharge assessment period. Code of 6 chosen for toileting hygiene was determined by team discussion to be the most usual performance for this patient during the discharge assessment period. Code of 6 chosen for toilet transfers was determined by team discussion to be the most usual performance for this patient during the discharge assessment period. Code of 6 chosen for upper body dressing was determined by team discussion to be the most usual performance for this patient during the discharge assessment period. Code of 6 chosen for lower body dressing was determined by team discussion to be the most usual performance for this patient during the discharge assessment period. Code of 6 chosen for sit to lying was determined by team discussion to be the most usual performance for this patient during the discharge assessment period. Code of 6 chosen for lying to sitting was determined by team discussion to be the most usual performance for this patient during the discharge assessment period. Code of 6 chosen for sit to stand was determined by team discussion to be the most usual performance for this patient during the discharge assessment period. Code of 6 chosen for chair to bed was determined by team discussion to be the most usual performance for this patient during the discharge assessment period. Code of 6 chosen for walking 10 feet was determined by team discussion to be the most usual performance for this patient during the discharge assessment period. Code of 6 chosen for walking 50 feet w/ 2 turns was determined by team discussion to be the most usual performance before interventions for this patient during the discharge assessment period. Code of 6 chosen for walking 150 feet was determined by team discussion to be the most usual performance for this patient during the discharge assessment period. Code of 6 chosen for walk 10 feet on uneven surface was determined by team discussion to be the most usual performance for this patient during the discharge assessment period.--PD [place] Code of 6 chosen for 1 step was determined by team discussion to be the most usual performance for this patient during the discharge assessment period.
== END 2023-03-03 11:17 | disposition home health service (06) | DRG 561 ==
PROVIDERS: Internal Medicine; Physical Medicine & Rehabilitation Sports Medicine; Physician Assistant; ADMIT Internal Medicine
DX: S72.141D Displaced intertrochanteric fracture of right femur, subsequent encounter for closed fracture with routine healing (principal); D64.9 Anemia, unspecified; R26.89 Other abnormalities of gait and mobility; I10 Essential (primary) hypertension; G89.29 Other chronic pain; K59.00 Constipation, unspecified; M54.9 Dorsalgia, unspecified; G47.00 Insomnia, unspecified; E87.6 Hypokalemia; F41.9 Anxiety disorder, unspecified; Z72.0 Tobacco use; Z74.09 Other reduced mobility; R35.0 Frequency of micturition; W19.XXXD Unspecified fall, subsequent encounter